=== PATIENT | female | born 1940 | race Caucasian/White ===

== ENCOUNTER 2023-04-01 18:32 | Inpatient (IN) | payer OTHER ==
[~2023-04-01] VITALS: Ht 167.6 cm; Wt 57.2 kg
[2023-04-01 19:43] VITALS: BP_SYST 126; BP_SYST 167; BP_DIAS 74; BP_DIAS 94; PULSE 84; RESP 18; TEMP 98.3; O2SAT 99
[2023-04-01 20:00] VITALS: BP 126/74; PULSE 84; RESP 18; TEMP 98.3; O2SAT 99
[2023-04-01] MEDS: SODIUM CHLORIDE 0.9% 1,000 ML IV SCH (20:15)
[2023-04-01] MEDS ORDERED: HYDROcodone-ACET 5/325MG TAB PO PRN (20:15)
[2023-04-01] MEDS ORDERED: DOCUSATE SOD 100 MG CAP PO PRN (20:15)
[2023-04-01] MEDS ORDERED: ACETAMINOPHEN 325 MG TAB PO PRN (20:15)
[2023-04-01] MEDS ORDERED: NITROGLYCERIN 0.4 MG SL TAB SL PRN (20:15)
[2023-04-01] MEDS ORDERED: MORPHINE SULFATE INJ 2 MG/ml SYRG IV PRN (20:15)
[2023-04-01] MEDS ORDERED: ONDANSETRON HCL 4 MG/2 ML VIAL IV PRN (20:15)
[2023-04-01 22:29] VITALS: BP 126/65; PULSE 88
[2023-04-01 22:30] VITALS: BP 124/70; PULSE 90
[2023-04-01 22:31] VITALS: BP 87/49; PULSE 94
[2023-04-02] VITALS (8 sets, daily range): BP systolic 89–154; BP diastolic 53–95; PULSE 73–101; RESP 16–90; TEMP 97.1–101; O2SAT 94–99
[2023-04-02] MEDS ORDERED: LEVO100T8 PO (01:00)
[2023-04-02] MEDS: LEVOTHYROXINE SODIUM 100 MCG TAB PO SCH (06:06)
[2023-04-02] MEDS: SODIUM CHLORIDE 0.9% 1,000 ML IV SCH ×3 (06:06→19:43)
[2023-04-02 07:08] LABS: Basophils # (auto) 0 10 ^3/uL (0-0.2); Basophils % (auto) 0.7 % (0.0-2.0); Eosinophils # (auto) 0.1 10 ^3/uL (0-0.8); Eosinophils % (auto) 2.1 % (0.0-7.0); Hematocrit 31.8 % (36.0-46.0); Hemoglobin 10.9 g/dL (12.2-16.2); Lymphocytes # (auto) 1.2 10 ^3/uL (0.4-5.4); Lymphocytes % (auto) 20.5 % (10.0-50.0); Mean Corpuscular Hemoglobin 30.9 pg (28.0-32.0); Mean Corpuscular Hgb Conc. 34.2 g/dL (32.0-36.0); Mean Corpuscular Volume 90.4 fL (80.0-100.0); Monocytes # (auto) 0.7 10 ^3/uL (0-1.3); Monocytes % (auto) 11.5 % (0.0-12.0); Neutrophils # (auto) 3.9 10 ^3/uL (1.6-8.6); Neutrophils % (auto) 65.2 % (37.0-80.0); Red Blood Cells 3.52 10^6/uL (4.0-5.20)
[2023-04-02 07:26] LABS: BUN/Creatinine Ratio 32.3 (10.0-20.0); Calcium 8.2 mg/dL (8.5-10.1); Potassium 3.7 mmol/L (3.5-5.1)
[2023-04-03 05:00] VITALS: BP 143/83; PULSE 81; RESP 17; TEMP 97.9; O2SAT 95
[2023-04-03] MEDS: LEVOTHYROXINE SODIUM 100 MCG TAB PO SCH (06:14)
[2023-04-03 06:24] LABS: Calcium 8.5 mg/dL (8.5-10.1)
[2023-04-03 06:25] LABS: BUN/Creatinine Ratio 23.5 (10.0-20.0)
[2023-04-03 06:29] LABS: Basophils # (auto) 0.1 10 ^3/uL (0-0.2); Basophils % (auto) 0.9 % (0.0-2.0); Eosinophils # (auto) 0.2 10 ^3/uL (0-0.8); Eosinophils % (auto) 2.9 % (0.0-7.0); Hematocrit 32.7 % (36.0-46.0); Hemoglobin 11.1 g/dL (12.2-16.2); Lymphocytes # (auto) 1.5 10 ^3/uL (0.4-5.4); Lymphocytes % (auto) 25.2 % (10.0-50.0); Mean Corpuscular Hemoglobin 30.9 pg (28.0-32.0); Mean Corpuscular Volume 90.9 fL (80.0-100.0); Monocytes # (auto) 0.6 10 ^3/uL (0-1.3); Neutrophils # (auto) 3.5 10 ^3/uL (1.6-8.6); Nucleated Red Blood Cells % 0.1 %; Red Blood Cells 3.59 10^6/uL (4.0-5.20); Red Cell Distribution Width 13.7 % (11.8-14.3); White Blood Cell 5.8 10^3/uL (4.4-10.8)
[2023-04-03 08:00] VITALS: BP 151/90; PULSE 76; PULSE 77; RESP 18; TEMP 97.7; O2SAT 97
[2023-04-03 09:00] VITALS: BP 151/90; PULSE 76; RESP 18; TEMP 97.7; O2SAT 97
[2023-04-03] MEDS: SODIUM CHLORIDE 0.9% 1,000 ML IV SCH (12:15)
[2023-04-03 13:00] VITALS: BP 152/84; PULSE 92; RESP 18; TEMP 97.4; O2SAT 97
== END 2023-04-03 17:21 | disposition home health service (06) | DRG 312 ==
LOC: TELE-WESTW 18:50
PROVIDERS: ADMIT Internal Medicine; ATTEND Internal Medicine
DX: I95.1 Orthostatic hypotension (principal); E87.1 Hypo-osmolality and hyponatremia; I10 Essential (primary) hypertension; E05.90 Thyrotoxicosis, unspecified without thyrotoxic crisis or storm; R54 Age-related physical debility; E03.9 Hypothyroidism, unspecified; Z82.49 Family history of ischemic heart disease and other diseases of the circulatory system
CPT/HCPCS: 36415; 80048; 85025; 87040; 93306; 97110; 97116; 97163; 97530; G0378

== ENCOUNTER 2024-04-14 12:18 | Emergency (ER) | payer OTHER ==
[~2024-04-14] VITALS: Ht 177.8 cm; Wt 70.0 kg
[~2024-04-14 12:18] MED LIST: LEVO100T8 PO
[2024-04-14 14:02] LABS: Basophils # (auto) 0 10 ^3/uL (0-0.2); Basophils % (auto) 0.5 % (0.0-2.0); Eosinophils # (auto) 0 10 ^3/uL (0-0.8); Eosinophils % (auto) 0.5 % (0.0-7.0); Hematocrit 34.7 % (36.0-46.0); Hemoglobin 11.9 g/dL (12.2-16.2); Lymphocytes % (auto) 17.1 % (10.0-50.0); Mean Corpuscular Hemoglobin 30.8 pg (28.0-32.0); Mean Corpuscular Hgb Conc. 34.2 g/dL (32.0-36.0); Mean Corpuscular Volume 90.2 fL (80.0-100.0); Monocytes # (auto) 0.5 10 ^3/uL (0-1.3); Neutrophils # (auto) 4.5 10 ^3/uL (1.6-8.6); Neutrophils % (auto) 73.9 % (37.0-80.0); Nucleated Red Blood Cells % 0.1 %; Platelet Count (auto) 170 10^3/uL (140-450); Red Blood Cells 3.85 10^6/uL (4.0-5.20); Red Cell Distribution Width 13.9 % (11.8-14.3)
[2024-04-14 14:14] LABS: Chloride 102 mmol/L (98-107); Potassium 4.3 mmol/L (3.5-5.1); Sodium 135 mmol/L (136-145)
[2024-04-14 14:15] LABS: Anion Gap 4 (5-15); Calcium 9.7 mg/dL (8.7-10.4); Carbon Dioxide 29 mmol/L (20-30)
[2024-04-14 14:20] LABS: BUN/Creatinine Ratio 23.7 (10.0-20.0); Blood Urea Nitrogen 23 mg/dL (9-23); Glucose 104 mg/dL (74-106)
[2024-04-14 15:24] VITALS: PULSE 90; RESP 14; O2SAT 98
[2024-04-14 15:27] VITALS: BP 139/91; PULSE 90; RESP 14; O2SAT 98
== END 2024-04-14 16:49 | disposition home or self-care (01) ==
LOC: EDBD 12:18 → ER 12:18
DX: M50.30 Other cervical disc degeneration, unspecified cervical region (principal); F32.9 Major depressive disorder, single episode, unspecified; Z79.899 Other long term (current) drug therapy
CPT/HCPCS: 36415; 70450; 72125; 80048; 84484; 85025; 93005